=== PATIENT | female | born 1975 | race Caucasian/White ===

== ENCOUNTER → 2022-12-05 10:15 | Outpatient (BNVA) | payer OTHER, SELFPAY | PROVIDERS: Family Provider Family Medicine; Visit Provider Specialist | DX: G62.89 Other specified polyneuropathies (principal) | CPT/HCPCS: 80503; 82945; 84157; 87070; 87075; 87205; 89050 ==

== ENCOUNTER 2023-12-24 15:00 | Oncology outpatient (recurring) (ONCR) | payer OTHER, SELFPAY ==
[2023-12-21 15:32] VITALS: BP 152/90; PULSE 76; RESP 16; TEMP 36.6; O2SAT 99
[2023-12-21] MEDS: methylPREDNISolone sod succ 1,000 MG in sodium chloride 0.9% 250 ML 500 MG IV (15:48)
[2023-12-21 16:29] VITALS: BP 155/101; PULSE 66; TEMP 37.1; O2SAT 100
[2023-12-22] MEDS: methylPREDNISolone sod succ 1,000 MG in sodium chloride 0.9% 250 ML 500 MG IV (15:34)
[2023-12-22 15:38] VITALS: BP 154/104; PULSE 92; RESP 16; TEMP 37.9; O2SAT 98
[2023-12-22 16:02] VITALS: BP 152/91; PULSE 89; RESP 18; TEMP 37.6; O2SAT 99
[2023-12-23 15:40] VITALS: BP 166/98; PULSE 68; RESP 16; TEMP 36.6; O2SAT 97
[2023-12-23] MEDS: methylPREDNISolone sod succ 1,000 MG in sodium chloride 0.9% 250 ML 500 MG IV (15:50)
[2023-12-24 15:12] VITALS: BP 172/102; PULSE 82; RESP 18; O2SAT 97
[2023-12-24] MEDS: methylPREDNISolone sod succ 1,000 MG in sodium chloride 0.9% 250 ML 500 MG IV (15:21)
[2023-12-24 16:04] VITALS: BP 166/96; PULSE 66; RESP 16; TEMP 36.6; O2SAT 97
== END 2023-12-24 23:59 | disposition home or self-care (01) ==
PROVIDERS: PCP Family Medicine; Visit Provider Psychiatry & Neurology Clinical Neurophysiology
DX: G61.81 Chronic inflammatory demyelinating polyneuritis (principal); Z53.9 Procedure and treatment not carried out, unspecified reason
CPT/HCPCS: 96365; J2930; J7050

== ENCOUNTER 2024-01-21 14:30 | Oncology outpatient (recurring) (ONCR) | payer OTHER, SELFPAY ==
[2023-12-25 10:40] VITALS: BP 188/112; PULSE 73; RESP 16; TEMP 36.9; O2SAT 100
[2023-12-25] MEDS: SODIUM CHLORIDE 0.9% IV (10:48)
[2023-12-25] MEDS: METHYLPREDNISOLONE SOD SUCC IV (10:48)
[2023-12-25 11:18] VITALS: BP 164/98; PULSE 62; RESP 16; TEMP 37.7; O2SAT 98
[2024-01-07 15:28] VITALS: BP 113/74; PULSE 74; RESP 14; TEMP 36.9; O2SAT 98
[2024-01-07] MEDS: SODIUM CHLORIDE 0.9% IV (15:45)
[2024-01-07] MEDS: METHYLPREDNISOLONE SOD SUCC IV (15:45)
[2024-01-07 16:19] VITALS: BP 166/84; PULSE 76; RESP 16; TEMP 36.4; O2SAT 97
[2024-01-07 16:28] VITALS: BP 133/74; PULSE 68; RESP 16; TEMP 36.4; O2SAT 99
[2024-01-21] MEDS: SODIUM CHLORIDE 0.9% IV (14:58)
[2024-01-21] MEDS: METHYLPREDNISOLONE SOD SUCC IV (14:58)
[2024-01-21 15:20] VITALS: BP 152/92; PULSE 84; RESP 16; O2SAT 97
[2024-01-21 15:33] VITALS: BP 156/94; PULSE 81; RESP 16; TEMP 37.1; O2SAT 98
== END 2024-01-24 23:59 | disposition home or self-care (01) ==
PROVIDERS: PCP Family Medicine; Visit Provider Psychiatry & Neurology Clinical Neurophysiology
DX: G61.81 Chronic inflammatory demyelinating polyneuritis (principal); Z53.9 Procedure and treatment not carried out, unspecified reason
CPT/HCPCS: 96365; J2930

== ENCOUNTER 2024-02-18 11:00 | Oncology outpatient (recurring) (ONCR) | payer OTHER, SELFPAY ==
[2024-02-04 14:50] VITALS: BP 124/86; PULSE 78; RESP 16; TEMP 36.7; O2SAT 98
[2024-02-04] MEDS: SODIUM CHLORIDE 0.9% IV (15:21)
[2024-02-04] MEDS: METHYLPREDNISOLONE SOD SUCC IV (15:21)
[2024-02-04 16:02] VITALS: BP 135/89; PULSE 78; RESP 18; TEMP 36.9; O2SAT 98
[2024-02-18] MEDS: METHYLPREDNISOLONE SOD SUCC IV (12:35)
[2024-02-18] MEDS: SODIUM CHLORIDE 0.9% IV (12:35)
[2024-02-18 12:40] VITALS: BP 122/80; PULSE 80; RESP 16; TEMP 36.6; O2SAT 98
--- NOTE | 2024-02-18 12:40 | PC.NURSE ---
bedside blood glucose 84
[2024-02-18 13:17] VITALS: BP 155/107; PULSE 72; RESP 16; TEMP 36.2; O2SAT 99
== END 2024-02-23 23:59 | disposition home or self-care (01) ==
PROVIDERS: PCP Family Medicine; Visit Provider Psychiatry & Neurology Clinical Neurophysiology
DX: Z53.9 Procedure and treatment not carried out, unspecified reason (principal); G61.81 Chronic inflammatory demyelinating polyneuritis
CPT/HCPCS: 96365; J2919

== ENCOUNTER 2024-03-18 08:00 | Oncology outpatient (recurring) (ONCR) | payer OTHER, SELFPAY ==
[2024-03-03 14:22] VITALS: BP 133/86; PULSE 89; RESP 18; TEMP 36.6; O2SAT 98
[2024-03-03] MEDS: SODIUM CHLORIDE 0.9% IV (14:48)
[2024-03-03] MEDS: METHYLPREDNISOLONE SOD SUCC IV (14:48)
[2024-03-18 08:16] VITALS: BMI 29.5
[2024-03-18 08:17] VITALS: BP 139/88; PULSE 69; RESP 18; TEMP 37.4; O2SAT 98
[2024-03-18] MEDS: SODIUM CHLORIDE 0.9% IV (08:46)
[2024-03-18] MEDS: METHYLPREDNISOLONE SOD SUCC IV (08:46)
[2024-03-18 08:56] VITALS: TEMP 36.8
[2024-03-18 09:25] VITALS: BP 146/91; PULSE 83; RESP 16; TEMP 37.2; O2SAT 100
== END 2024-03-25 23:59 | disposition home or self-care (01) ==
PROVIDERS: PCP Family Medicine; Visit Provider Psychiatry & Neurology Clinical Neurophysiology
DX: G61.81 Chronic inflammatory demyelinating polyneuritis (principal); Z53.9 Procedure and treatment not carried out, unspecified reason
CPT/HCPCS: 96365; J2919; J7050

== ENCOUNTER 2024-04-14 14:27 | Oncology outpatient (recurring) (ONCR) | payer OTHER, SELFPAY ==
[2024-03-31 15:15] VITALS: BP 130/92; PULSE 87; RESP 16; TEMP 36.1; O2SAT 99
[2024-03-31] MEDS: METHYLPREDNISOLONE SOD SUCC IV (15:25)
[2024-03-31] MEDS: SODIUM CHLORIDE 0.9% IV (15:25)
[2024-03-31 16:10] VITALS: BP 143/95; PULSE 75; RESP 16; TEMP 37.2; O2SAT 99
[2024-04-14 15:00] VITALS: BP 127/84; PULSE 82; RESP 16; TEMP 36.6; O2SAT 97
[2024-04-14] MEDS: SODIUM CHLORIDE 0.9% IV (15:28)
[2024-04-14] MEDS: METHYLPREDNISOLONE SOD SUCC IV (15:28)
[2024-04-14 16:36] VITALS: BP 134/86; PULSE 86; RESP 16; TEMP 36.6; O2SAT 99
== END 2024-04-24 23:59 | disposition home or self-care (01) ==
PROVIDERS: PCP Family Medicine; Visit Provider Psychiatry & Neurology Clinical Neurophysiology
DX: Z53.9 Procedure and treatment not carried out, unspecified reason (principal); G61.81 Chronic inflammatory demyelinating polyneuritis
CPT/HCPCS: 96365; J2919; J7050

== ENCOUNTER 2024-05-12 08:00 | Oncology outpatient (recurring) (ONCR) | payer OTHER, SELFPAY ==
[2024-04-29 10:52] VITALS: BP 112/76; PULSE 73; RESP 18; TEMP 37.2; O2SAT 97
[2024-04-29] MEDS: SODIUM CHLORIDE 0.9% IV (10:57)
[2024-04-29] MEDS: METHYLPREDNISOLONE SOD SUCC IV (10:57)
[2024-04-29 11:33] VITALS: BP 127/74; PULSE 71; RESP 16; TEMP 37.3; O2SAT 98
[2024-05-12 08:05] VITALS: BP 139/85; PULSE 87; RESP 16; TEMP 36.8; O2SAT 99
[2024-05-12] MEDS: SODIUM CHLORIDE 0.9% IV (08:41)
[2024-05-12] MEDS: METHYLPREDNISOLONE SOD SUCC IV (08:41)
[2024-05-12 09:20] VITALS: BP 136/87; PULSE 80; RESP 16; TEMP 36.8; O2SAT 98
== END 2024-05-25 23:59 | disposition home or self-care (01) ==
PROVIDERS: PCP Family Medicine; Visit Provider Psychiatry & Neurology Clinical Neurophysiology
DX: G61.81 Chronic inflammatory demyelinating polyneuritis (principal)
CPT/HCPCS: 96365; J2919; J7050

== ENCOUNTER 2024-06-16 07:49 | Oncology outpatient (recurring) (ONCR) | payer OTHER, SELFPAY ==
[2024-05-30 08:25] VITALS: BP 140/83; PULSE 74; RESP 16; TEMP 36.7; O2SAT 97
[2024-05-30] MEDS: METHYLPREDNISOLONE SOD SUCC IV (09:23)
[2024-05-30] MEDS: SODIUM CHLORIDE 0.9% IV (09:23)
[2024-05-30 10:00] VITALS: BP 142/94; PULSE 70; RESP 16; TEMP 36.9; O2SAT 98
[2024-06-16 08:06] VITALS: BP 122/81; PULSE 76; RESP 16; TEMP 36.2; O2SAT 97
[2024-06-16] MEDS: METHYLPREDNISOLONE SOD SUCC IV (08:17)
[2024-06-16] MEDS: SODIUM CHLORIDE 0.9% IV (08:17)
[2024-06-16 09:05] VITALS: BP 123/84; PULSE 67; RESP 16; TEMP 36.4; O2SAT 99
== END 2024-06-25 23:59 | disposition home or self-care (01) ==
PROVIDERS: PCP Family Medicine; Visit Provider Psychiatry & Neurology Clinical Neurophysiology
DX: Z53.9 Procedure and treatment not carried out, unspecified reason (principal); G61.81 Chronic inflammatory demyelinating polyneuritis; Z79.899 Other long term (current) drug therapy
CPT/HCPCS: 96365; J2919; J7050

== ENCOUNTER 2024-07-14 14:00 | Oncology outpatient (recurring) (ONCR) | payer OTHER, SELFPAY ==
[2024-06-30 14:55] VITALS: BP 118/81; PULSE 75; RESP 17; TEMP 37.5; O2SAT 98
[2024-06-30] MEDS: SODIUM CHLORIDE 0.9% IV (15:12)
[2024-06-30] MEDS: METHYLPREDNISOLONE SOD SUCC IV (15:12)
[2024-06-30 15:53] VITALS: BP 136/89; PULSE 69; RESP 16; TEMP 36.6; O2SAT 99
[2024-07-14 13:59] VITALS: BP 133/81; PULSE 76; RESP 16; TEMP 36.6; O2SAT 95
[2024-07-14 14:51] VITALS: BP 131/85; PULSE 78; RESP 16; TEMP 36.6; O2SAT 98
== END 2024-07-25 23:59 | disposition home or self-care (01) ==
PROVIDERS: PCP Family Medicine; Visit Provider Psychiatry & Neurology Clinical Neurophysiology
DX: G61.81 Chronic inflammatory demyelinating polyneuritis (principal); Z53.9 Procedure and treatment not carried out, unspecified reason; Z79.899 Other long term (current) drug therapy
CPT/HCPCS: 96365; J2919; J7050

== ENCOUNTER 2024-08-25 14:00 | Oncology outpatient (recurring) (ONCR) | payer OTHER, SELFPAY ==
[2024-07-28 14:23] VITALS: BP 116/80; PULSE 88; RESP 16; TEMP 37.1; O2SAT 98
[2024-07-28 15:20] VITALS: BP 133/89; PULSE 73; RESP 16; TEMP 36.3; O2SAT 98
[2024-08-11 14:32] VITALS: BP 147/85; PULSE 85; RESP 16; TEMP 36.9; O2SAT 96
[2024-08-11 15:51] VITALS: BP 148/89; RESP 17; TEMP 36.8; O2SAT 98
[2024-08-25 14:19] VITALS: BP 109/78; PULSE 75; RESP 16; TEMP 36.9; O2SAT 99
== END 2024-08-25 23:59 | disposition home or self-care (01) ==
PROVIDERS: PCP Family Medicine; Visit Provider Psychiatry & Neurology Clinical Neurophysiology
DX: G61.81 Chronic inflammatory demyelinating polyneuritis (principal); Z53.9 Procedure and treatment not carried out, unspecified reason; Z79.899 Other long term (current) drug therapy
CPT/HCPCS: 96365; J2919; J7050

== ENCOUNTER 2024-09-20 14:00 | Oncology outpatient (recurring) (ONCR) | payer OTHER, SELFPAY ==
[2024-09-08 15:08] VITALS: BP 141/88; PULSE 74; RESP 16; TEMP 36.9; O2SAT 98
[2024-09-20 15:06] VITALS: BP 118/84; PULSE 71; RESP 16; TEMP 36.9; O2SAT 97
[2024-09-20 16:14] VITALS: BP 149/87; PULSE 67; RESP 16; TEMP 36.8; O2SAT 99
== END 2024-09-24 23:59 | disposition home or self-care (01) ==
PROVIDERS: PCP Family Medicine; Visit Provider Psychiatry & Neurology Clinical Neurophysiology
DX: G61.81 Chronic inflammatory demyelinating polyneuritis (principal); Z79.899 Other long term (current) drug therapy; Z53.9 Procedure and treatment not carried out, unspecified reason
CPT/HCPCS: 96365; J2919; J7050

== ENCOUNTER 2024-10-20 14:00 | Oncology outpatient (recurring) (ONCR) | payer OTHER, SELFPAY ==
[2024-10-20 15:01] VITALS: BP 134/85; PULSE 79; RESP 15; TEMP 36.4; O2SAT 97
[2024-10-20 16:55] VITALS: BP 118/80; PULSE 74; RESP 17; O2SAT 96
== END 2024-10-25 23:59 | disposition home or self-care (01) ==
PROVIDERS: PCP Family Medicine; Visit Provider Psychiatry & Neurology Clinical Neurophysiology
DX: Z79.899 Other long term (current) drug therapy; Z53.9 Procedure and treatment not carried out, unspecified reason; G61.81 Chronic inflammatory demyelinating polyneuritis
CPT/HCPCS: 96365; J2919; J7050

== ENCOUNTER 2024-11-17 14:00 | Oncology outpatient (recurring) (ONCR) | payer OTHER, SELFPAY ==
[2024-11-03] MEDS: sodium chloride 0.9% 250 ML 75 ML IV (14:54)
[2024-11-03 16:42] VITALS: BP 128/79; PULSE 71; RESP 16; TEMP 36.9; O2SAT 97
[2024-11-17 14:37] VITALS: BP 152/83; PULSE 91; RESP 16; TEMP 36.8; O2SAT 98
[2024-11-17 15:49] VITALS: BP 148/92; PULSE 73; RESP 16; TEMP 37.1; O2SAT 97
== END 2024-11-25 23:59 | disposition home or self-care (01) ==
PROVIDERS: PCP Family Medicine; Visit Provider Psychiatry & Neurology Clinical Neurophysiology
DX: Z53.9 Procedure and treatment not carried out, unspecified reason; G61.81 Chronic inflammatory demyelinating polyneuritis; Z79.899 Other long term (current) drug therapy
CPT/HCPCS: 96365; J2919; J7050

== ENCOUNTER 2024-12-15 13:51 | Oncology outpatient (recurring) (ONCR) | payer OTHER, SELFPAY ==
[2024-12-01 09:42] VITALS: BP 148/93; PULSE 69; RESP 18; TEMP 37.2; O2SAT 97
[2024-12-15 15:58] VITALS: BP 155/98; PULSE 74; RESP 17; TEMP 36.6; O2SAT 98
== END 2024-12-23 23:59 | disposition home or self-care (01) ==
PROVIDERS: PCP Family Medicine; Visit Provider Psychiatry & Neurology Clinical Neurophysiology
DX: G61.81 Chronic inflammatory demyelinating polyneuritis (principal); Z79.899 Other long term (current) drug therapy
CPT/HCPCS: 96365; J2919; J7050

== ENCOUNTER 2025-01-05 14:03 | Outpatient (CLI) | payer OTHER, SELFPAY ==
--- NOTE | 2025-01-05 14:07 | XR_ITS ---
WS: [id number] SCREENING DEXA SCAN [employer] CLINICAL INFORMATION: POLYNEUROPATHY COMPARISON: None. FINDINGS: The L1-L4 bone mineral density measures 1.196 g/cm2. This corresponds to a T score score of 0.1 and Z score of -0.2. Left femoral neck bone mineral density measures 0.843 g/cm2. This corresponds to a T score of -1.3 and Z score of -1.4. Right femoral neck bone mineral density measures 0.823 g/cm2. This corresponds to a T score -1.5of and Z score of -1.6. Mean femoral neck bone mineral density measures 0.833 g/cm2. This corresponds to a T score of -1.4 and Z score of -1.5. XR/XR DEXA axial skeleton* [id number] IMPRESSION: Normal bone mineralization lumbar spine. Osteopenia femoral necks. Patient's FRAX calculated 10 year probability for major osteoporotic fracture i s 15.7% and osteoporotic hip fracture is 1.8%.
== END 2025-01-05 14:04 | disposition home or self-care (01) ==
LOC: RAD 14:05
PROVIDERS: PCP Family Medicine; Visit Provider Psychiatry & Neurology Neurology
DX: G62.9 Polyneuropathy, unspecified (principal); M85.88 Other specified disorders of bone density and structure, other site
CPT/HCPCS: 77080